=== PATIENT | female | born 1965 | race Caucasian/White ===

== ENCOUNTER → 2017-09-05 08:29 | Outpatient (CLI) | payer BC, SELFPAY ==
[2017-09-05 10:40] LABS: Glucose 107 mg/dL (74-106)
[2017-09-05 10:47] LABS: Hemoglobin A1c 5.9 % (4.2-6.3)
[2017-09-06 09:53] LABS: Vitamin D,25 Hydroxy 31.9 ng/mL (29.95-100.01)
== END ==
PROVIDERS: Family Provider Family Medicine; PCP Family Medicine; Visit Provider Family Medicine
DX: R73.03 Prediabetes (principal); E55.9 Vitamin D deficiency, unspecified
CPT/HCPCS: 36415; 82306; 82947; 83036

== ENCOUNTER 2017-10-02 15:41 | Outpatient (RCR) | payer BC, SELFPAY | END 2017-10-12 23:59 | LOC: NS 15:41 | PROVIDERS: Family Provider Family Medicine; PCP Family Medicine; Visit Provider Family Medicine | DX: E66.9 Obesity, unspecified (principal); Z68.41 Body mass index [BMI] 40.0-44.9, adult; Z71.3 Dietary counseling and surveillance | CPT/HCPCS: 97802 ==

== ENCOUNTER 2017-11-07 13:30 | Outpatient (RCR) | payer BC, SELFPAY ==
--- NOTE | 2017-10-23 14:25 | DT_ITS ---
This patient was seen during an EMR downtime October 16, 2017 - October 23, 2017. This patient may have a combination of paper and electronic documentation or all paper documentation. All documentation is viewable within the e-chart portion of [facility] for each patient visit.
== END 2017-11-11 23:59 ==
LOC: NS 13:30
PROVIDERS: Family Provider Family Medicine; PCP Family Medicine; Visit Provider Family Medicine
DX: E66.9 Obesity, unspecified (principal); Z68.41 Body mass index [BMI] 40.0-44.9, adult; Z71.3 Dietary counseling and surveillance
CPT/HCPCS: 97803

== ENCOUNTER 2017-12-01 08:00 | Outpatient (RCR) | payer BC, SELFPAY | END 2017-12-12 23:59 | LOC: NS 08:00 | PROVIDERS: Family Provider Family Medicine; PCP Family Medicine; Visit Provider Family Medicine | DX: E66.9 Obesity, unspecified (principal); Z68.41 Body mass index [BMI] 40.0-44.9, adult; Z71.3 Dietary counseling and surveillance | CPT/HCPCS: 97803 ==

== ENCOUNTER 2018-01-11 11:30 | Outpatient (RCR) | payer BC, SELFPAY | END 2018-01-12 23:59 | LOC: NS 11:30 | PROVIDERS: Family Provider Family Medicine; PCP Family Medicine; Visit Provider Family Medicine | DX: E66.9 Obesity, unspecified (principal); Z68.41 Body mass index [BMI] 40.0-44.9, adult; Z71.3 Dietary counseling and surveillance | CPT/HCPCS: 97803 ==

== ENCOUNTER 2018-03-08 11:30 | Outpatient (RCR) | payer BC, SELFPAY | END 2018-03-08 23:59 | LOC: NS 11:30 | PROVIDERS: Family Provider Family Medicine; PCP Family Medicine; Visit Provider Family Medicine | DX: E66.9 Obesity, unspecified (principal); Z68.41 Body mass index [BMI] 40.0-44.9, adult; Z71.3 Dietary counseling and surveillance | CPT/HCPCS: 97803 ==

== ENCOUNTER → 2018-05-02 08:03 | Outpatient (CLI) | payer BC, SELFPAY ==
[2018-05-02 10:37] LABS: Vitamin D,25 Hydroxy 33.9 ng/mL (29.95-100.01)
[2018-05-02 10:46] LABS: Anion Gap 10 (5-15); BUN 23 mg/dL (7-18); BUN/Creat Ratio 27.6 RATIO (10-20); Chloride 109 mmol/L (98-107); Cholesterol 221 mg/dL (200); Creatinine, Serum 0.83 mg/dL (0.55-1.02); EST Glomerular Filtration Rate 76 mL/min (>60); Est Glom Filt Rate - Afr Amer 92 mL/min (>60); Glucose 102 mg/dL (74-106); High Density Lipoprotein 48 mg/dL; Sodium Level 142 mmol/L (136-145); Thyroid Stim Hormone (TSH) 2.24 uIU/mL (0.358-3.74); Triglycerides 139 mg/dL; Very Low Density Lipoprotein 28 mg/dL (5-40)
--- OUTSIDE RECORDS SUMMARY | 2018-08-03 08:31 | XMS RPT_ITS ---
:1965 Author Organization [place] Support Name Relationship Address Phone JUANA RAMESH Unavailable [address] + [place] [address] [employer] Unavailable [address] + [place] [address] Juana Ramesh Unavailable Unavailable + JUANA RAMESH Unavailable [address] + [place] [address] [employer] Unavailable [address] + [place] [address] JUANA RAMESH Unavailable [address] + [place] [address] [employer] Unavailable [address] + [place] [address] JUANA RAMESH Unavailable [address] + [place] [address] [employer] Unavailable [address] + [place] [address] JUANA RAMESH Unavailable [address] + [place] [address] [employer] Unavailable [address] + [place] [address] JUANA RAMESH Unavailable [address] + [place] [address] [employer] Unavailable [address] + [place] [address] JUANA RAMESH Unavailable [address] [phone] [place] [address] [employer] Unavailable [address] + [place] [address]JUANA SIMMS Unavailable [address] [phone] [place] [address] [employer] Unavailable [address] + [place] [address] Care Team Providers Name Role Phone Marycarmen Chang Attending Unavailable PROVIDER, UNKNOWN Referring Unavailable Dickey, Brandon Primary Care Unavailable Dickey, Brandon Attending Unavailable Dickey, Brandon Primary Care Unavailable Dickey, Brandon Attending Unavailable Dickey, Brandon Primary Care Unavailable Dickey, Brandon Attending Unavailable Dickey, Brandon Referring Unavailable Dickey, Brandon Primary Care Unavailable Dickey, Brandon Attending Unavailable Dikcey, Brandon Referring Unavailable Dickey, Brandon Primary Care Unavailable Dickey, Brandon Attending Unavailable Dickey, Brandon Referring Unavailable Dickey, Brandon Primary Care Unavailable Dickey, Brandon Attending Unavailable Dickey, Brandon Referring Unavailable Diceky, Brandon Primary Care Unavailable Dickey, Brandon Attending Unavailable Dickey, Brandon Referring Unavailable Dickey, Brandon Primary Care Unavailable Dickey, Brandon Attending Unavailable Dickey, Brandon Referring Unavailable Dickey, Brandon Primary Care Unavailable PROBLEMS PROBLEMS DATE TYPE CONDITION / CODE ATTENDING STATUS SOURCE 04/13/2018 Admitting Encntr screen Bernardo Smartling Diagnosis mammogram for [facility] malignant Repository neoplasm of breast / Z12.31(ICD-10) 04/13/2018 Admitting Family history of Kerirorykathleen Smartling Diagnosis malignant [facility] neoplasm of Repository breast / Z80.3(ICD-10) 03/15/2018 Unknown E66.9 - Obesity, Brandon Dickey Active [place] unspecified / Community E66.9(ICD-10) Hospital Repository 09/06/2017 Unknown R73.03 - Brandon Dickey Active [place] Prediabetes / Community R73.03(ICD-10) Hospital Repository 09/06/2017 Unknown 790.29 - Other Brandon Dickey Active [place] abnormal glucose Community / 790.29(ICD-9) Hospital Repository 09/06/2017 Unknown E55.9 - Vitamin D Brandon Dickey Active [place] deficiency, Community unspecified / Hospital E55.9(ICD-10) Repository 09/06/2017 Unknown 268.9 - Brandon Dickey Active [place] Unspecified Community vitamin D Hospital deficiency / Repository 268.9(ICD-9) PROCEDURES PROCEDURES No Procedure Records FoundRESULTS RESULTS HEMOGLOBIN A1C Collected: 05/02/2018 Status: F Source: [place] 8:04 AM [facility] REPOSITORY Order Comment: Order Date: 10/30/17 Order Info: 4548-4 - A1C TYPE CODE TESTS RESULT OUT OF RANGE REFERENCE UNITS LAB L501.9985 4.2-6.3 % Normal HGB A1C 6.0 Performed By: #### L501.9985, L506.1000, L500.2500, L500.4100, L501.9520 #### [facility] [address] [place], [address] VITAMIN D,25 HYDROXY Collected: 05/02/2018 Status: F Source: [place] 8:04 AM [facility] REPOSITORY Order Comment: Order Date: 10/30/17 Order Info: 57552-3 - VITD25 TYPE CODE TESTS RESULT OUT OF RANGE REFERENCE UNITS LAB L506.1000 29.95-100.01 ng/mL Normal Vitamin D 33.9 25-OH Result Comment: Vitamin D 25(OH) Status Range Deficiency <20 ng/mL (50nmol/L) Insuffciency 20 - 30 ng/mL (50 - 75 nmol/L) Sufficiency 30 - 100 ng/mL (75 - 250 nmol/L) Toxicity >100 ng/mL (>250 nmol/L) Performed By: #### L501.9985, L506.1000, L500.2500, L500.4100, L501.9520 #### [facility] [address] [place], [address] BASIC METABOLIC Collected: 05/02/2018 Status: F Source: [place] PROFILE (BMP) 8:04 AM [facility] REPOSITORY Order Comment: Order Date: 10/30/17 Order Info: [id number] - BMP Order Info: [id number] - LIPID Order Info: 3016-3 - TSH TYPE CODE TESTS RESULT OUT OF RANGE REFERENCE UNITS LAB L501.0100 74-106 mg/dL Normal GLU 102 Result Comment: Fasting Glucose result from 100 to 125 mg/dL suggests IMPAIRED HOMEOSTASIS per A.D.A. criteria. Please note revised GLUCOSE reference range effective 2017. LAB L501.1000 7-18 mg/dL High BUN 23 LAB L501.1100 0.55-1.02 mg/dL Normal CREAT,SERUM 0.83 Result Comment: The validity of the calculated GFR AND GFRAA in patients over 70 years has not been determined. Clinical correlation is essential. LAB L501.1110 >60 mL/min Normal EST GFR 76 Result Comment: Non- GFR Calc LAB L501.1115 >60 mL/min Normal EST GFR - AA 92 Result Comment: GFR Calc LAB L501.1300 10-20 RATIO High BUN/CRE 27.6 LAB L501.2200 8.5-10.1 mg/dL CA Normal 9.0 LAB L501.5300 136-145 mmol/L NA Normal 142 LAB L501.5600 3.5-5.1 mmol/L K Normal 4.0 LAB L501.5900 98-107 mmol/L High CL 109 LAB L501.6100 21.0-32.0 mmol/L Normal CO2 23.0 LAB L501.6200 5-15 Normal GAP 10 Performed By: #### L501.9985, L506.1000, L500.2500, L500.4100, L501.9520 #### [facility] [address] [place], [place], [address] LIPID PROFILE Collected: 05/02/2018 Status: F Source: [place] 8:04 AM [facility] REPOSITORY Order Comment: Order Date: 10/30/17 Order Info: [id number] - BMP Order Info: [id number] - LIPID Order Info: 3016-3 - TSH TYPE CODE TESTS RESULT OUT OF RANGE REFERENCE UNITS LAB L501.4900 200 mg/dL High CHOL 221 Result Comment: <200 mg/dL Desirable 200-240 mg/dL Borderline >240 mg/dL High Risk LAB L501.5000 mg/dL Normal TRIG 139 Result Comment: The drugs N-Acetylcysteine and Metamizole may falsely depress this assay. Serum Triglycerides Reference Interval Normal <150 mg/dL Borderline high 150 - 199 mg/dL High 200 - 499 mg/dL Very High > or = 500 mg/dL LAB L501.6400 mg/dL Normal HDL 48 Result Comment: The drugs N-Acetylcysteine and Metamizole may falsely depress this assay. Reference Range HDL <40 mg/dL Low HDL Cholesterol HDL >or= 60 mg/dL High HDL Cholesterol LAB L501.6500 0-130 mg/dL High LDL 145 LAB L501.6600 5-40 mg/dL Normal VLDL 28 Performed By: #### L501.9985, L506.1000, L500.2500, L500.4100, L501.9520 #### [facility] [address] [place], [address] THYROID STIM HORMONE Collected: 05/02/2018 Status: F Source: [place] (TSH) 8:04 AM [facility] REPOSITORY Order Comment: Order Date: 10/30/17 Order Info: [id number] - BMP Order Info: [id number] - LIPID Order Info: 3016-3 - TSH TYPE CODE TESTS RESULT OUT OF RANGE REFERENCE UNITS LAB L501.9520 0.358-3.74 uIU/mL Normal TSH 2.24 Performed By: #### L501.9985, L506.1000, L500.2500, L500.4100, L501.9520 #### [facility] [address] [facility] [place], [address] MG BREAST TOMOSYNTHESIS Observed: 04/13/2018 Status: F Source: [employer] SCR BL 12:00 AM SYSTEM REPOSITORY Patient Name: JENNY RAMESH Mammography Exam Date/Time 04/13/2018 11:22:07 EST Exam MG Breast Tomosynthesis [facility] Ordering Physician Shawn CHANG MARYCARMEN Accession Number [id number] CPT4 Codes 12422 (MG Breast Tomosynthesis Scr Bl), 79773 (MG MAMMO 2D SCREENING) Reason For Exam screening Report PATIENT HISTORY: Family history of breast cancer at age 51 in mother, unknown cancer in sister, prostate cancer at age 65 in father, breast cancer at age 50 or over in maternal aunt. Benign stereotactic core biopsy of the left breast, 2007. Took hormonal contraceptives for 4 years. Patient has never smoked. Patient's BMI is 38.8. TIME SINCE LAST MAMMOGRAM: Last mammogram was performed 1 year ago. REASON FOR EXAM: screening, asymptomatic. PROCEDURE: MG BREAST TOMOSYNTHESIS BL SCR: APRIL 13, 2018 - 2D/3D Procedure 3D Bilateral CC and MLO view(s) were taken. 2D Bilateral CC and MLO view(s) were taken. Prior study comparison: April 03, 2017, bilateral MG breast tomosynthesis bl performed at [facility]. October 03, 2016, MG breast tomosynthesis left performed at [facility]. March 12, 2015, MG breast tomosynthesis left performed at [facility]. January 29, 2015, bilateral screening mammogram, performed at [facility]. TISSUE DENSITY: There are scattered fibroglandular densities. FINDINGS: No suspicious masses, architectural distortions or suspiciously clustered microcalcifications are identified. There is no evidence of skin thickening or nipple retraction. A postbiopsy tissue marker is present in the superior lateral quadrant of the left breast anteriorly as well as the inferior medial quadrant of the left breast at anterior to middle depth. There are no significant changes when compared with prior studies. Markings on images: BB's = Nipples; skin lesions Open [place] = Palpable Line = Scar 2D digital mammography and tomosynthesis imaging were performed and reviewed with CAD. ASSESSMENT: Category 2 Benign No mammographic evidence of malignancy. RECOMMENDATION: Routine screening mammogram of both breasts in 1 year. The patient does have an elevated lifetime risk of breast malignancy, see below. Consider SCREENING BREAST MRI. Report Dictated on Cancer Risk Assessment: This risk assessment is based on patient provided information collected in a risk survey taken at the time of this examination. Lifetime breast cancer risk: 19.2% - If greater than or equal to 20%, consider annual mammogram and annual screening Breast MRI or follow up in high risk clinic. Is the patient at elevated risk based on the HBOC criteria? Yes (Hereditary Breast and Ovarian Cancer) - If yes, consider genetic counseling and testing with high risk follow up. HNPCC mutation risk (Watson Syndrome): 1% - if greater than or equal to 5%, consider genetic counseling, testing and screening colonoscopy. Final Signed Date and Time: 04/13/2018 1:12 pm Signed by: MD MYERS JENNIFER R [facility] REPORT Observed: 11/02/2017 Status: F Source: [place] 11:54 AM [facility] REPOSITORY [facility] Medical Records Department [address] [place] [address] Downtime Report MR#: [id number] Acct: [id number] Name: JENNY RAMESH Rep #: [id number] : 1965 52 From: Thomas Dickey PCP: Brandon Dickey MD Status: REG RCR This patient was seen during an EMR downtime October 16, 2017 - October 23, 2017. This patient may have a combination of paper and electronic documentation or all paper documentation. All documentation is viewable within the e-chart portion of [facility] [employer] for each patient visit. GLUCOSE Collected: 09/05/2017 Status: F Source: [place] 8:30 AM [facility] REPOSITORY Order Comment: Order Date: 05/09/17 Order Info: 2345-7 - GLU TYPE CODE TESTS RESULT OUT OF RANGE REFERENCE UNITS LAB L501.0100 74-106 mg/dL High GLU 107 Result Comment: Fasting Glucose result from 100 to 125 mg/dL suggests IMPAIRED HOMEOSTASIS per A.D.A. criteria. Please note revised GLUCOSE reference range effective 2017. Performed By: #### L501.0100, L501.9985, L506.1000 #### [facility] [address] [place], [address] HEMOGLOBIN A1C Collected: 09/05/2017 Status: F Source: [place] 8:30 AM [facility] REPOSITORY Order Comment: Order Date: 05/09/17 Order Info: 4548-4 - A1C TYPE CODE TESTS RESULT OUT OF RANGE REFERENCE UNITS LAB L501.9985 4.2-6.3 % Normal HGB A1C 5.9 Performed By: #### L501.0100, L501.9985, L506.1000 #### [facility] [address] [place], [address] VITAMIN D,25 HYDROXY Collected: 09/05/2017 Status: F Source: [place] 8:30 AM [facility] REPOSITORY Order Comment: Order Date: 05/09/17 Order Info: 97450-9 - VITD25 TYPE CODE TESTS RESULT OUT OF RANGE REFERENCE UNITS LAB L506.1000 29.95-100.01 ng/mL Normal Vitamin D 31.9 25-OH Result Comment: Vitamin D 25(OH) Status Range Deficiency <20 ng/mL (50nmol/L) Insuffciency 20 - 30 ng/mL (50 - 75 nmol/L) Sufficiency 30 - 100 ng/mL (75 - 250 nmol/L) Toxicity >100 ng/mL (>250 nmol/L) Performed By: #### L501.0100, L501.9985, L506.1000 #### [facility] [address] [place], [address] ALLERGIES ALLERGIES No Allergies Records FoundENCOUNTERS ENCOUNTERS ADMIT/DISCHARGE ACCOUNT NUMBER ADMITTING ENCOUNTER LOCATION SOURCE CLASS 05/02/2018 [id number] [facility] ding:MFPLAB Repository 04/13/2018 [id number] [facility] Repository 03/25/2018 [id number] [facility] ding:NS Repository 03/08/2018/03/14/[id number] ding:NS Repository 01/11/2018/01/13/[id number] ding:NS Repository 12/01/2017/12/13/[id number] ding:NS Repository 11/07/2017/11/12/[id number] ding:NS Repository 10/02/2017/10/13/[id number] ding:NS Repository 09/05/2017 [id number] [facility] ding:MFPLAB Repository PAYERS PAYERS ENCOUNTER GUARANTOR PAYER SUBSCRIBER SOURCE 05/02/2018 Juana BACASHAREE Sigala [place] [id number] Insurance:ANTHEMPolic BECKERDOB: [facility] y [place]: [id number] [id number] Repository [address]Vqf: [phone]) Date:6830-64-34HN [phone] () [place], [place] [address]YR: 05/02/2018 Secondary NOT GIVENUNK [place] Insurance:SELF PAY [facility] Number: Effective Repository Date:2018-05-02 04/13/2018 Jenny L Primary Jenny L [facility] BeckerDOB: Insurance:[place] BeckerDOB: System [id number] W Cross Blue [id number] Repository [facility] Number: [facility], Effective Date: [place] [address]Plv: () 03/25/2018 Juana Primary JENNY L [place] [id number] Insurance:ANTHEMPolic BECKERDOB: [facility] y Number: [id number], [place] [id number] Repository [address]Gqr: ([phone]) Date:9667-82-89KP [phone] () [address] [place] [address] [place] [address]HY: 03/25/2018 Secondary NOT GIVENUNK [place] Insurance:SELF PAY [facility] Number: Effective Repository Date:2018-03-15 03/08/2018 Juana OSWALD L [place] [id number] Insurance:ANTHEMPolic BECKERDOB: [facility] y Number: [id number], [place] [id number] Repository [address]Mgd: ([phone]) Date:7603-51-29UK [phone] () [address] [place] [address] [place] [address]HY: 03/08/2018 Secondary NOT GIVENUNK [place] Insurance:SELF PAY [facility] Number: Effective Repository Date:2018-01-13 01/11/2018 Juana Primary JENNY L [place] [id number] Insurance:ANTHEMPolic BECKERDOB: [facility] y Number: [id number], [place] [id number] Repository 346[address]Vbk: ([phone]) Date:1169-38-60KN [phone] () [address]AK[place], [place] [address]JE: 01/11/2018 Secondary NOT GIVENUNK [place] Insurance:SELF PAY [facility] Number: Effective Repository Date:2017-12-13 12/01/2017 Juana Arredondo [id number] Insurance:ANTHEMPolic BECKERDOB: [facility] y Number: [id number], [place] [id number] Repository 278[address]Hcc: ([phone]) Date:2589-07-16WA [phone] (HP) [id number], [place] [address]KR: 12/01/2017 Secondary NOT GIVENUNK [place] Insurance:SELF PAY [facility] Number: Effective Repository Date:2017-11-12 11/07/2017 Juana Sigala [place] [id number] Insurance:ANTHEMPolic BECKERDOB: [facility] y Number: [id number], [place] [id number] Repository 229[address]Mvh: ([phone]) Date:9375-24-49IV [phone] () 432[address]XLNLLZS, [place] [address]VL: 11/07/2017 Secondary NOT GIVENUNK [place] Insurance:SELF PAY [facility] Number: Effective Repository Date:2017-10-13 10/02/2017 Juana Arredondo [id number] Insurance:ANTHEMPolic BECKERDOB: [facility] y Number: [id number], [place] [id number] Repository [address]Rfx: Date:7233-39-52PI [phone] 866224BMCQQSO, [place] 9 () [address]WA: 10/02/2017 Secondary NOT GIVENUNK [place] Insurance:SELF PAY [facility] Number: Effective Repository Date:2017-09-14 09/05/2017 Juana Arredondo [id number] Insurance:ANTHEMPolic BECKERDOB: [facility] y Number: [id number], [place] [id number] Repository [address]Jln: Date:0663-72-59AF [phone] [id number], [place] 9 () [address]EC: 09/05/2017 Secondary NOT GIVENUNK [place] Insurance:SELF PAY [facility] Number: Effective Repository Date:2017-09-05
== END ==
PROVIDERS: Family Provider Family Medicine; PCP Family Medicine; Visit Provider Family Medicine
DX: E55.9 Vitamin D deficiency, unspecified (principal); I10 Essential (primary) hypertension; E66.9 Obesity, unspecified; E78.00 Pure hypercholesterolemia, unspecified; R73.03 Prediabetes
CPT/HCPCS: 36415; 80048; 80061; 82306; 83036; 84443

== ENCOUNTER → 2019-04-23 08:01 | Outpatient (CLI) | payer BC, SELFPAY ==
[2019-04-23 10:19] LABS: Anion Gap 7 (5-15); BUN 19 mg/dL (7-18); BUN/Creat Ratio 23.1 RATIO (10-20); Calcium,Total 8.9 mg/dL (8.5-10.1); Chloride 110 mmol/L (98-107); Cholesterol 198 mg/dL (200); Creatinine, Serum 0.82 mg/dL (0.55-1.02); EST Glomerular Filtration Rate 77 mL/min (>60); Est Glom Filt Rate - Afr Amer 93 mL/min (>60); Glucose 122 mg/dL (74-106); High Density Lipoprotein 40 mg/dL; Potassium 3.8 mmol/L (3.5-5.1); Sodium Level 142 mmol/L (136-145); Triglycerides 312 mg/dL; Very Low Density Lipoprotein 62 mg/dL (5-40)
[2019-04-23 10:29] LABS: Hemoglobin A1c 6.8 % (4.2-6.3)
== END ==
PROVIDERS: Family Provider Family Medicine; PCP Family Medicine; Visit Provider Family Medicine
DX: R73.03 Prediabetes (principal); I10 Essential (primary) hypertension; E78.00 Pure hypercholesterolemia, unspecified
CPT/HCPCS: 36415; 80048; 80061; 83036

== ENCOUNTER → 2019-06-25 08:09 | Outpatient (CLI) | payer BC, SELFPAY ==
[2019-06-25 10:23] LABS: Anion Gap 8 (5-15); BUN 22 mg/dL (7-18); Calcium,Total 9.1 mg/dL (8.5-10.1); Chloride 109 mmol/L (98-107); Creatinine, Serum 0.92 mg/dL (0.55-1.02); EST Glomerular Filtration Rate 67 mL/min (>60); Est Glom Filt Rate - Afr Amer 82 mL/min (>60); Glucose 126 mg/dL (74-106); Sodium Level 144 mmol/L (136-145)
== END ==
PROVIDERS: PCP Family Medicine; Visit Provider Family Medicine
DX: E11.9 Type 2 diabetes mellitus without complications (principal)
CPT/HCPCS: 36415; 80048

== ENCOUNTER → 2020-04-23 08:11 | Outpatient (CLI) | payer BC, SELFPAY ==
[2020-04-23 10:54] LABS: ALB/GLOB Ratio 0.9 RATIO (0.9-2.4); AST(SGOT) 13 U/L (15-37); Alanine Aminotransfer ALT/SGPT 29 U/L (13-56); Albumin, Serum 3.6 g/dL (3.2-5.0); Alkaline Phosphatase 128 U/L (45-117); Anion Gap 8 (5-15); BUN 26 mg/dL (7-18); BUN/Creat Ratio 27.2 RATIO (10-20); Calcium,Total 9.1 mg/dL (8.5-10.1); Chloride 109 mmol/L (98-107); Creatinine, Serum 0.96 mg/dL (0.55-1.02); EST Glomerular Filtration Rate 64 mL/min (>60); Est Glom Filt Rate - Afr Amer 78 mL/min (>60); Globulin 3.9 g/dL (2.2-4.2); Glucose 125 mg/dL (74-106); Protein, Total 7.5 g/dL (6.4-8.2); Sodium Level 141 mmol/L (136-145); Thyroid Stim Hormone (TSH) 2.63 uIU/mL (0.358-3.74)
== END ==
PROVIDERS: PCP Family Medicine; Referring Provider Family Medicine; Visit Provider Family Medicine
DX: E11.9 Type 2 diabetes mellitus without complications (principal)
CPT/HCPCS: 36415; 80053; 84443

== ENCOUNTER 2020-07-30 14:47 | Outpatient (RCR) | payer BC, SELFPAY ==
[2020-07-30] MEDS: COVID-19 VACC, MRNA(PFIZER)/PF 30 MCG/0.3 ML SYRINGE IM (08:28)
[2020-08-20] MEDS: COVID-19 VACC, MRNA(PFIZER)/PF 30 MCG/0.3 ML SYRINGE IM (08:19)
== END 2020-07-30 23:59 ==
LOC: IMMUN 14:47
PROVIDERS: PCP Family Medicine; Visit Provider Family Medicine
DX: Z23 Encounter for immunization (principal)
CPT/HCPCS: 0001A; 0002A; 91300

== ENCOUNTER → 2020-10-15 14:47 | Outpatient (CLI) | payer BC, SELFPAY ==
--- NOTE | 2020-10-15 15:10 | BD_ITS ---
STUDY: DUAL ENERGY X-RAY ABSORPTIOMETRY / DXA REASON FOR EXAM: Female, 55 years old. Z13.820. The patient is postmenopausal. TECHNIQUE: Bone Mineral Density (BMD) measurements of lumbar spine and bilateral hips were obtained. COMPARISON: Comparison is made with prior study dated 03/13/2007. FINDINGS: Lumbar Spine (L1-L4): g/cm2 (1.103) / T-score (-0.6) / Z-score (0.3) Findings are suggestive of normal bone density with a low fracture risk. Left Femur Total: g/cm2 (0.869) / T-score (-1.1) / Z-score (-0.4) Left Femoral Neck: g/cm2 (0.851) / T-score (-1.3) / Z-score (-0.3) Right Femur Total: g/cm2 (0.956) / T-score (-0.4) / Z-score (0.3) Right Femoral Neck: g/cm2 (0.806) / T-score (-1.7) / Z-score (-0.6) The T-Scores on the most recent prior examination were: Lumbar Spine (L1-L4): There has been improvement of bone density since the previous examination. Left Femur Total: which represents a worsening of 26.2%. BD/Dexa Bone Density Study IMPRESSION: The patient is considered osteopenic as outlined below according to World Andre Organization (WHO) criteria with a moderate fracture risk. There has been worsening of bone density since the previous examination. Reference Information: The T-score is the number of standard deviations above or below the standard which is normal for young adults at their peak bone mineral density. The World Health Organization (WHO) interprets the T-scores as follows: Above -1 Normal bone density Between -1 and -2.5 Osteopenia Equal to / or below -2.5 Osteoporosis As a practical clinical guideline, osteopenia may be graded as follows: Mild -1 through -1.5 Moderate -1.6 through -2.0 Severe -2.1 through -2.4 The Z-score is the number of standard deviations above or below age-matched controls. A Z-score of less than -1.5 would be considered abnormal. References: 1. NIH Osteoporosis and Related Bone Diseases www osteo.org 2. International Society for Clinical Densitometry www iscd.org 3. National Osteoporosis Foundation www nof.org Electronically Signed: True Hull MD at 13:21 EDT , Service support ,
== END ==
PROVIDERS: PCP Family Medicine; Referring Provider Obstetrics & Gynecology; Visit Provider Obstetrics & Gynecology
DX: Z13.820 Encounter for screening for osteoporosis (principal)
CPT/HCPCS: 77080

== ENCOUNTER → 2020-10-20 08:24 | Outpatient (CLI) | payer BC, SELFPAY | PROVIDERS: PCP Family Medicine; Visit Provider Family Medicine | DX: Z00.00 Encounter for general adult medical examination without abnormal findings (principal) ==

== ENCOUNTER → 2020-10-29 08:16 | Outpatient (CLI) | payer BC, SELFPAY ==
[2020-10-29 11:16] LABS: Anion Gap 9 (5-15); BUN 16 mg/dL (7-18); BUN/Creat Ratio 20.3 RATIO (10-20); Calcium,Total 9.2 mg/dL (8.5-10.1); Chloride 106 mmol/L (98-107); Cholesterol 202 mg/dL (200); Creatinine, Serum 0.79 mg/dL (0.55-1.02); EST Glomerular Filtration Rate 80 mL/min (>60); Est Glom Filt Rate - Afr Amer 97 mL/min (>60); Glucose 117 mg/dL (74-106); High Density Lipoprotein 43 mg/dL; Sodium Level 142 mmol/L (136-145); Triglycerides 271 mg/dL; Very Low Density Lipoprotein 54 mg/dL (5-40)
== END ==
PROVIDERS: PCP Family Medicine; Referring Provider Family Medicine; Visit Provider Family Medicine
DX: E11.9 Type 2 diabetes mellitus without complications (principal)
CPT/HCPCS: 36415; 80048; 80061

== ENCOUNTER → 2021-05-10 09:28 | Outpatient (CLI) | payer BC, SELFPAY ==
[2021-05-10 12:27] LABS: Vitamin B12 566 pg/mL (211-911)
[2021-05-10 12:53] LABS: ALB/GLOB Ratio 0.8 RATIO (0.9-2.4); AST(SGOT) 16 U/L (15-37); Alanine Aminotransfer ALT/SGPT 29 U/L (13-56); Albumin, Serum 3.5 g/dL (3.2-5.0); Alkaline Phosphatase 123 U/L (45-117); Anion Gap 9 (5-15); BUN 18 mg/dL (7-18); BUN/Creat Ratio 19.6 RATIO (10-20); Calcium,Total 9.3 mg/dL (8.5-10.1); Chloride 110 mmol/L (98-107); Creatinine, Serum 0.92 mg/dL (0.55-1.02); EST Glomerular Filtration Rate 67 mL/min (>60); Est Glom Filt Rate - Afr Amer 81 mL/min (>60); Globulin 4.2 g/dL (2.2-4.2); Glucose 109 mg/dL (74-106); Potassium 3.9 mmol/L (3.5-5.1); Protein, Total 7.7 g/dL (6.4-8.2); Sodium Level 143 mmol/L (136-145); Thyroid Stim Hormone (TSH) 2.05 uIU/mL (0.358-3.74)
== END ==
PROVIDERS: PCP Family Medicine; Visit Provider Family Medicine
DX: E11.9 Type 2 diabetes mellitus without complications (principal)
CPT/HCPCS: 36415; 80053; 82607; 84443

== ENCOUNTER → 2021-11-08 | Outpatient (CLI) | payer BC, SELFPAY ==
[2021-11-08 10:33] LABS: Anion Gap 8 (5-15); BUN 20 mg/dL (7-18); BUN/Creat Ratio 27.4 RATIO (10-20); Chloride 111 mmol/L (98-107); Cholesterol 195 mg/dL (200); Creatinine, Serum 0.73 mg/dL (0.55-1.02); EST Glomerular Filtration Rate 87 mL/min (>60); Est Glom Filt Rate - Afr Amer 106 mL/min (>60); Glucose 118 mg/dL (74-106); High Density Lipoprotein 43 mg/dL; Potassium 3.8 mmol/L (3.5-5.1); Sodium Level 143 mmol/L (136-145); Triglycerides 253 mg/dL; Very Low Density Lipoprotein 51 mg/dL (5-40)
== END | disposition home or self-care (01) ==
LOC: MFPLAB 08:32
PROVIDERS: PCP Family Medicine; Visit Provider Family Medicine
DX: E11.9 Type 2 diabetes mellitus without complications (principal)
CPT/HCPCS: 36415; 80048; 80061

== ENCOUNTER → 2022-11-09 | Outpatient (CLI) | payer BC, SELFPAY ==
[2022-11-09 10:53] LABS: Color, Urine Yellow (Yellow); Glucose, Dipstick Normal (Normal); Ketone-Dipstick Negative (Negative); Leukocyte Esterase-Dipstick Negative /ul (Negative); Nitrite-Dipstick Negative (Negative); Occult Blood-Urine Negative /ul (Negative); Protein-Dipstick 15 mg/dl (Negative); Specific Gravity, Urine 1.015 (1.002-1.030); Urine Bilirubin Dipstick Negative (Negative); Urine Clarity Clear (Clear); Urine Urobilinogen Normal (Normal)
[2022-11-09 11:24] LABS: ALB/GLOB Ratio 0.9 RATIO (0.9-2.4); AST(SGOT) 16 U/L (15-37); Alanine Aminotransfer ALT/SGPT 26 U/L (13-56); Albumin, Serum 3.6 g/dL (3.2-5.0); Alkaline Phosphatase 137 U/L (45-117); Anion Gap 4 (5-15); BUN 17 mg/dL (7-18); BUN/Creat Ratio 19.7 RATIO (10-20); Calcium,Total 9.5 mg/dL (8.5-10.1); Chloride 108 mmol/L (98-107); Cholesterol 212 mg/dL (200); Creatinine, Serum 0.86 mg/dL (0.55-1.02); EST Glomerular Filtration Rate 72 mL/min (>60); Est Glom Filt Rate - Afr Amer 87 mL/min (>60); Globulin 3.9 g/dL (2.2-4.2); Glucose 136 mg/dL (74-106); High Density Lipoprotein 44 mg/dL; Potassium 3.8 mmol/L (3.5-5.1); Protein, Total 7.5 g/dL (6.4-8.2); Sodium Level 139 mmol/L (136-145); Triglycerides 151 mg/dL; Very Low Density Lipoprotein 30 mg/dL (5-40)
[2022-11-09 11:29] LABS: Vitamin D,25 Hydroxy 83.2 ng/mL
[2022-11-09 20:26] LABS: Thyroid Stim Hormone (TSH) 3.34 uIU/mL (0.358-3.74)
== END | disposition home or self-care (01) ==
LOC: MTLAB 08:12
PROVIDERS: PCP Family Medicine; Referring Provider Family Medicine; Visit Provider Family Medicine
DX: Z00.00 Encounter for general adult medical examination without abnormal findings (principal); E11.9 Type 2 diabetes mellitus without complications; E55.9 Vitamin D deficiency, unspecified
CPT/HCPCS: 36415; 80053; 80061; 81002; 82043; 82306; 84443

== ENCOUNTER → 2023-05-29 | Outpatient (CLI) | payer BC, SELFPAY ==
--- OUTSIDE RECORDS SUMMARY | 2023-05-29 09:56 | XMS RPT_ITS | CCD ---
Author Name Unknown Address [address] [place] [address] Organization [facility] Care Team Providers Care Green Building Engineer Name Role Phone Brandon Dickey Primary Care Provider TAYLOR KENDALL Attending Unavailable Allergies Allergy Classification Reported Allergen(s) Allergy Type Date of Onset Reaction(s) Facility (5 sources) hydroCHLOROthiazide Drug Allergy [address] [place] [address] Medications Current Medications Medication Drug Class(es) Dates Sig (Normalized) Sig (Original) clobetasol propionate 0.5 mg/ml topical lotion (5 sources) Corticosteroid Clobetasol Propionate (CLOBEX) 0.05 % LOTN Apply topically 0 Active FLUZONE QUADRIVALENT 0.5 ML injection (2 sources) Start: 02-22-2018 FLUZONE QUADRIVALENT 0.5 ML injection To be injected by Pharmacist 0 02/22/2018 Active FLUZONE QUADRIVALENT 0.5 ML injection (1 source) Start: 02-22-2018 FLUZONE QUADRIVALENT 0.5 ML injection To be injected by Pharmacist 0 02/22/2018 Active FLUZONE QUADRIVALENT 0.5 ML injection (1 source) Start: 02-22-2018 FLUZONE QUADRIVALENT 0.5 ML injection To be injected by Pharmacist 0 02/22/2018 Active losartan potassium 50 mg oral tablet (5 sources) Angiotensin 2 Receptor Cesar Start: 03-30-2018 losartan (COZAAR) 50 MG tablet 100 mg 11 03/30/2018 Active 24 hr metFORMIN hydrochloride 500 mg extended release oral tablet (2 sources) Biguanide Start: 04-08-2020 metFORMIN (GLUCOPHAGE-XR) 500 MG extended release tablet ondansetron 4 mg oral tablet (3 sources) Serotonin-3 Receptor Antagonist Start: 11-26-2019 take 1 tablet by mouth every twelve hours as needed for nausea ondansetron (ZOFRAN) 4 MG tablet Take 1 tablet by mouth every 12 hours as needed for Nausea or Vomiting 4 tablet 0 11/26/2019 Active Completed/Discontinued Medications Medication Drug Class(es) Dates Sig (Normalized) Sig (Original) gadobutrol (GADAVIST) injection 9.5 mL (1 source) Start: 11-29-2019 End: 11-29-2019 gadobutrol (GADAVIST) injection 9.5 mL Problems Active Problems Problem Classification Problem Date Documented Da te Episodic/Chronic Nonmalignant breast conditions (1 source) Fibrocystic changes of bilateral breasts; Translations: [Diffuse cystic mastopathy of right breast] Onset: 04-13-2018 04-13-2018 Chronic Nonmalignant breast conditions (4 sources) Fibrocystic changes of bilateral breasts; Translations: [Fibrocystic breast changes, bilateral] Onset: 04-13-2018 04-13-2018 Other screening for suspected conditions (not mental disorders or infectious disease) (7 sources) Abnormal findings on diagnostic imaging of breast; Translations: [Other abnormal and inconclusive findings on diagnostic imaging of breast] Onset: 02-20-2015 02-20-2015 Episodic Other screening for suspected conditions (not mental disorders or infectious disease) (1 source) Inconclusive mammography finding; Translations: [Dense breasts] Residual codes; unclassified (2 sources) Other specified personal risk factors, not elsewhere classified; Translations: [Other specified personal risk factors, not elsewhere classified] Onset: 05-12-2022 Episodic Residual codes; unclassified (2 sources) Family history of malignant neoplasm of breast; Translations: [Family history of malignant neoplasm of breast] Onset: 02-24-2022 Episodic Residual codes; unclassified (5 sources) At high risk for breast cancer; Translations: [At high risk for breast cancer] Onset: 04-13-2018 04-13-2018 Unclassified (2 sources) Patient encounter status; Translations: [Screening mammogram for high-risk patient] Past or Other Problems Problem Classification Problem Date Documented Da te Episodic/Chronic Nonmalignant breast conditions (5 sources) Breast lump; Translations: [Unspecified lump in unspecified breast] Onset: 02-20-2015 02-20-2015 Episodic Residual codes; unclassified (6 sources) Family history of breast cancer; Translations: [Family history of malignant neoplasm of breast] Onset: 02-20-2015 02-20-2015 Episodic Residual codes; unclassified (1 source) At high risk for breast cancer; Translations: [Other specified personal risk factors, not elsewhere classified] Onset: 04-13-2018 04-13-2018 Episodic Results Test Name Value Interpretation Reference Range Facil ity Encounters Encounter Date Encounter Type Care Provider Facility Start: 05-12-2022 End: 05-12-2022 ambulatory [facility] Start: 04-25-2022 End: 04-26-2022 ambulatory [facility] Start: 04-23-2021 End: 04-23-2021 Subsequent hospital visit by physician Marycarmen Kenny MD Work Phone: [facility] Procedures Date Procedure Procedure Detail Performing Clinician Start: 04-23-2021 Screening digital br east tomosynthesis bi Marycarmen Kenny MD Work Phone: Start: 11-29-2019 Mri breast without&w ith contrast w/cad bilateral Marycarmen Kenny Work Phone: Start: 04-19-2019 Screening digital br east tomosynthesis bi Marycarmen Kenny Work Phone: Plan of Treatment Date Care Activity Detail Author Start: 05-19-2028 DTaP/Tdap/Td vaccine (2 - Td or Tdap) DTaP/Tdap/Td vaccine (2 - Td or Tdap) [facility] Start: 04-23-2022 Screening for malign ant neoplasm of breast Breast cancer screen [facility] Start: 05-06-2021 End: 05-06-2021 Patient encounter procedure 05/06/2021 Office Visit [facility] Taylor Kendall APRN - AGENCY DIRECTOR [address] [place], [place] [id number] [facility] Start: 04-15-2021 End: 04-15-2021 Office Visit 04/15/2021 Office Visit Breast Clinic / Breast Center Taylor Kendall APRN - AGENCY DIRECTOR [address] [place], [place] [id number] [facility] Start: 02-19-2021 COVID-19 Vaccine (3 - Booster for Pfizer series) COVID-19 Vaccine (3 - Booster for Pfizer series) [facility] Start: 04-19-2020 Screening for malign ant neoplasm of breast Breast cancer screen [place], [place] Start: 04-17-2020 End: 04-17-2020 Office Visit 04/17/2020 Office Visit Breast Clinic / Breast Center Taylor Kendall, GRETCHEN - AGENCY DIRECTOR [address] [place] [address] [phone] [facility] Start: 01-14-2020 Influenza vaccination Flu vaccine (# 1) [place], [place] Start: 11-29-2019 End: 11-29-2019 Appointment 11/29/2019 Appointment MRI [facility] Start: 04-13-2019 Breast cancer screen Breast cancer s creen [place], [place] Start: 01-13-2019 Influenza vaccination Flu vaccine (# 1) [place] Start: 02-13-2014 Colon cancer screen colonoscopy Colon cancer screen colonoscopy [place], [place] Start: 02-13-2014 Screening for malign ant neoplasm of colon Colon cancer screen colonoscopy [place] Start: 02-13-2014 Shingles Vaccine (1 of 2) Shingles Vaccine (1 of 2) [facility] Start: 02-13-2009 Screening for malign ant neoplasm of colon Colon cancer screen colonoscopy [facility] Start: 2004 Diabetes screen Diabetes screen [place], [place] Start: 2004 Lipid panel Lipid screen [facility] Start: 2004 Lipid screen Lipid screen [place], [place] Start: 02-13-1985 Cervical cancer screen Cervical canc er screen [place], [place] Start: 02-13-1985 Screening for malign ant neoplasm of cervix Cervical cancer screen [place], [place] Start: 02-13-1983 DTaP/Tdap/Td vaccine (1 - Tdap) DTaP/Tdap/Td vaccine (1 - Tdap) [place] Start: 02-13-1979 HIV screen HIV screen [place], [place] Start: 02-13-1979 HIV screening HIV screen [facility] Start: 02-13-1975 DTaP/Tdap/Td vaccine (1 - Tdap) DTaP/Tdap/Td vaccine (1 - Tdap) [place], [place] Start: 1964 Creatinine measurement Creatinine mo nitoring [facility] Start: 1964 Creatinine monitoring Creatinine mon itoring [place], [place] Start: 1964 Hepatitis C screen Hepatitis C scree n [place], [place] Start: 1964 Hepatitis C screening Hepatitis C sc reen [facility] Start: 1964 Potassium monitoring Potassium monit oring [facility] End: 11-26-2019 MRI Breast Bilateral W WO Contrast MRI Breast Bilateral W WO Contrast Imaging Routine Screening mammogram for high-risk patient At High Risk For Breast Cancer Family history of breast cancer Dense breasts 1 Occurrences starting 11/26/2019 until 11/26/2019 [place], [place] Immunizations Immunization Date Immunization Notes Care Provider Anneliese thomas 02-22-2018 FLUZONE QUADRIVALENT 0.5 ML injection Marycarmen Kenny [place], [place] Payers Date Payer Category Payer Unknown BC[place] PO xxxxxxxxxxxx 2015-Present [address] [place] [address] xxxxxxxxxxxx [id number] 2015 Unknown BCBS [place] PO [id number] 2015-Present [address] [place] [address] [id number] 2015 Unknown [id number] Social History Date Type Detail Facility Start: 04-19-2019 End: 04-17-2020 Tobacco smoking status NHIS Never smoker [place], [place] Start: 04-19-2019 End: 04-17-2020 Alcohol intake Current non-drinker of alcohol (finding) [place], [place] Start: 1965 Sex Assigned At Not on file M [employer] JORGE ALBERTO BOWMAN Start: 04-19-2019 End: 04-17-2020 Tobacco use and exposure Never used [employer], JORGE ALBERTO Exposure to SARS-CoV -2 (event) Not sure Margie [employer] JORGE ALBERTO BOWMAN Medical Equipment Procedure Code Equipment Code Equipment Origin al Text Equipment Identifier Dates use 1 TEST STRIP to TEST BLOOD SUGAR once daily [id number] Start: 02-15-2020 Advance Directives No Advanced Directives Records FoundDocuments on File Type Date Recorded Patient Distribution Sales Manager Expl anation Advance Directives and Living Will Power of Harmonic Analyst Documents on File Type Date Recorded Patient Distribution Sales Manager Expl anation Advance Directives and Living Will Power of Harmonic Analyst Documents on File Type Date Recorded Patient Distribution Sales Manager Expl anation ACP-Advance Directive ACP-Power of Harmonic Analyst Documents on File Type Date Recorded Patient Distribution Sales Manager Expl anation ACP-Advance Directive ACP-Power of Harmonic Analyst Reason for Referral Status Reason Specialty Diagnoses / Procedures Referre d By Contact Referred To Contact Open Radiology Diagnoses Screening mammogram for high-risk patient At high risk for breast cancer Family history of breast cancer Dense breasts Procedures MRI Breast Bilateral W WO Contrast Marycarmen Kenny MD [address] [place] [address] Status Reason Specialty Diagnoses / Procedures Referred By Contact Referred To Contact Authorized Radiology Diagnoses Encounter for screening mammogram for breast cancer Procedures ONOFRE MIGUEL DIGITAL SCREEN BILATERAL Tayolr Kendall, GRETCHEN - AGENCY DIRECTOR [address] [place] [address] Assessments Diagnosis Screening mammogram for high-risk patient At high risk for breast cancer Family history of breast cancer Family history of malignant neoplasm of breast Dense breasts Inconclusive mammogram Diagnosis Encounter for screening mammogram for breast cancer Summary Purpose Family History No Family History Records FoundNo Family History Records Found Additional Source Comments Care Teams (unrecognized sec tion and content) INFORMATION SOURCE (unrecogn ized section and content) DATE CREATED AUTHOR AUTHOR'S ORGANIZ ATION 05/12/2022 [employer] [facility] FOR RECORDS PERTAINING TO PATIENTS WHO ARE OR HAVE BEEN ENROLLED IN A CHEMICAL DEPENDENCY/SUBSTANCEABUSE PROGRAM, SOME INFORMATION MAY BE OMITTED. This clinical summary was aggregated from multiple sources. Caution should be exercised in using it in the provision of clinical care. This summary normalizes information from multiple sources, and as a consequence, information in this document may materially change the coding, format and clinical context of patient data. In addition, data may be omitted in some cases. CLINICAL DECISIONS SHOULD BE BASED ON THE PRIMARY CLINICAL RECORDS. [employer] [facility]. provides no warranty or guarantee of the accuracy or completeness of information in this document.
[2023-05-29 14:04] LABS: ALB/GLOB Ratio 0.9 RATIO (0.9-2.4); AST(SGOT) 11 U/L (15-37); Alanine Aminotransfer ALT/SGPT 23 U/L (13-56); Albumin, Serum 3.6 g/dL (3.2-5.0); Alkaline Phosphatase 142 U/L (45-117); Anion Gap 7 (5-15); BUN 19 mg/dL (7-18); BUN/Creat Ratio 23.1 RATIO (10-20); Calcium,Total 9.4 mg/dL (8.5-10.1); Chloride 109 mmol/L (98-107); Cholesterol 194 mg/dL (200); Creatinine, Serum 0.82 mg/dL (0.55-1.02); EST Glomerular Filtration Rate 76 mL/min (>60); Est Glom Filt Rate - Afr Amer 92 mL/min (>60); Globulin 3.8 g/dL (2.2-4.2); Glucose 108 mg/dL (74-106); High Density Lipoprotein 55 mg/dL; Potassium 4.1 mmol/L (3.5-5.1); Protein, Total 7.4 g/dL (6.4-8.2); Sodium Level 143 mmol/L (136-145); Triglycerides 160 mg/dL; Very Low Density Lipoprotein 32 mg/dL (5-40)
== END | disposition home or self-care (01) ==
LOC: MFPLAB 09:37
PROVIDERS: PCP Family Medicine; Visit Provider Family Medicine
DX: E11.9 Type 2 diabetes mellitus without complications (principal)
CPT/HCPCS: 36415; 80053; 80061; 84443

== ENCOUNTER → 2024-03-27 | Outpatient (CLI) | payer BC, SELFPAY ==
[2024-03-27 18:16] LABS: Absolute Lymphocyte Count 1.34 X10^3/uL (0.83-4.51); Absolute Neutrophil Count 7.6 X10^3/uL (2.0-7.7); Basophil# 0.04 X10^3/uL; Basophil% 0.4 % (0-1); Eosinophil# 0.11 X10^3/uL; Eosinophils% 1.1 % (0-5); Hematocrit 39.4 % (37-47); Hemoglobin 12.9 g/dL (12.0-15.0); Lymphocyte # 1.34 X10^3/ul (0.83-4.51); Lymphocyte % 13.3 % (19-41); Mean Corp Hgb Conc 32.7 g/dL (32-36); Mean Corpuscular Hgb 28.5 pg (27.0-32.0); Mean Platelet Vol. 10.8 fl (6.2-12.0); Monocyte# 0.95 X10^3/uL; Monocyte% 9.4 % (0-10); NRBC Flagged by Analyzer 0 % (0-5); Neutrophil # 7.59 X10^3/uL (2.7-7.7); Neutrophil % 75.1 % (47-70); Platelet Count 368 K/mm3 (150-450); RBC Distribution Width CV 13.2 % (11.6-14.6); RBC Distribution Width SD 42.3 fl (35.1-43.9); Red Blood Count 4.53 M/mm3 (4.2-5.4); White Blood Count 10.1 K/mm3 (4.4-11.0)
[2024-03-27 18:35] LABS: ALB/GLOB Ratio 0.8 RATIO (0.9-2.4); AST(SGOT) 76 U/L (15-37); Alanine Aminotransfer ALT/SGPT 30 U/L (13-56); Albumin, Serum 3.2 g/dL (3.2-5.0); Alkaline Phosphatase 108 U/L (45-117); Anion Gap 6 (5-15); BUN 14 mg/dL (7-18); BUN/Creat Ratio 12.6 RATIO (10-20); Calcium,Total 9.6 mg/dL (8.5-10.1); Chloride 106 mmol/L (98-107); Creatinine, Serum 1.11 mg/dL (0.55-1.02); EST Glomerular Filtration Rate 53 mL/min (>60); Est Glom Filt Rate - Afr Amer 65 mL/min (>60); Glucose 116 mg/dL (74-106); Lipase 30 U/L (13-75); Potassium 3.5 mmol/L (3.5-5.1); Protein, Total 7.2 g/dL (6.4-8.2); Sodium Level 140 mmol/L (136-145)
== END | disposition home or self-care (01) ==
LOC: MFPLAB 16:57
PROVIDERS: PCP Family Medicine; Visit Provider Family Medicine
DX: R10.9 Unspecified abdominal pain (principal)
CPT/HCPCS: 36415; 80053; 83690; 85025

== ENCOUNTER → 2024-03-29 | Outpatient (CLI) | payer BC, SELFPAY ==
--- NOTE | 2024-03-29 08:16 | US_ITS ---
STUDY: ABDOMINAL ULTRASOUND - RIGHT UPPER QUADRANT REASON FOR VISIT: Female, 59 years old. ABDOMEN PAIN ABD PAIN TECHNIQUE: Ultrasound evaluation of the right upper quadrant was performed with real-time and static castano-scale imaging. TECHNICAL QUALITY: Adequate. COMPARISON: None FINDINGS: Liver: The liver has a size in centimeters of 20. There is increased echogenicity consistent with fatty infiltration. The bile ducts are within normal limits. There is hepatic color flow. The direction of portal flow is hepatopetal. There is no demonstrated mass lesion. Gallbladder: Normal distended gallbladder. The gallbladder wall measures 9.4 mm. There is a negative sonographic Pedraza''s sign. There is pericholecystic fluid. There are multiple echogenic structures within the gallbladder, consistent with multiple gallstones. Common Bile Duct (C.B.D.): The common bile duct measures ( in mm): 3.7. Pancreas: Normal size of the head, body of the pancreas. There is increased echogenicity of the pancreas. There is no demonstrated pancreatic mass or cyst. Right Kidney: Normal size of the right kidney. The right kidney measures 10.4 cm. . Normal renal cortex. 13 mm simple cyst of the right kidney. There is no right hydronephrosis. Aorta: 20 mm in maximal aortic diameter. Abdominal ascites. Spleen: Normal size of the spleen. The spleen measures 11 cm. Left Kidney: Normal size of the left kidney. The left kidney measures 10.9 cm. . There is a normal cortex of the left kidney. 12 mm stable cyst of the left kidney. There is no left hydronephrosis. I.V.C.: The IVC is patent. Pleural effusion. US/Abdomen Complete IMPRESSION: Moderate abdominal ascites. Cholelithiasis with a thickened gallbladder wall. Pericholecystic fluid. No Pedraza sign. Echogenic pancreas. Hepatomegaly. Hepatic steatosis. Note: Renal size measurements and size measurements of other organs etc may vary depending on modality and blanchard grinder operator dependent variations in measurements. (i.e. Measuring a kidney on an US does not correlate with an exact same measurement on a CT.) Electronically Signed: Dinesh Schafer MD at 17:00 [facility] ,
== END | disposition home or self-care (01) ==
LOC: US 08:14
PROVIDERS: PCP Family Medicine; Referring Provider Family Medicine; Visit Provider Family Medicine
DX: R10.9 Unspecified abdominal pain (principal)
CPT/HCPCS: 76700

== ENCOUNTER → 2024-04-08 | Outpatient (CLI) | payer BC, SELFPAY ==
--- NOTE | 2024-04-08 09:24 | CT_ITS ---
ACR Level 3 findings have been noted. An addendum which confirms receipt of the report will follow. HISTORY: abdominal ascites. TECHNIQUE: Helically acquired images were obtained of the abdomen and pelvis after the intravenous administration of 100 mL Isovue-370. Gastrografin also administered orally. A radiation dose optimization technique was used for this scan. 476 images. COMPARISON: US 02/27/2024. FINDINGS: LOWER CHEST: 3 mm right middle and lower lobe nodules. Mild dependent lower lobe atelectasis with mild-moderate bilateral pleural effusions. BOWEL: Bowel nondilated. Appendix not visualized. Colonic diverticulosis without focal inflammatory change observed. PERITONEUM: Mild ascites with multiple omental and peritoneal nodules and masses 4 quadrants of the abdomen measuring up to 8 x 12 cm in the right lower quadrant and 3.6 x 8 cm and the left upper quadrant. LIVER: Fatty infiltration with a 3.5 cm subtle hypoenhancing mass in the right lobe adjacent to the gallbladder fossa. GALLBLADDER/BILIARY TREE: 5 cm gallstone. SPLEEN: Homogeneous and nonenlarged. 3.8 cm necrotic appearing mass at the splenic hilum. PANCREAS/ADRENAL GLANDS: Unremarkable. KIDNEYS: Right renal malrotation. Probable left renal sinus cysts. VESSELS: No abdominal aortic aneurysm. Mild atherosclerosis. PELVIC ORGANS: Absent uterus. 3.6 x 4.1 cm right adnexal mass. BONES: Mild degenerative change. CT/Abdomen/Pelvis WITH Contrast IMPRESSION: Multiple heterogeneous omental and peritoneal masses and nodules, concerning for malignancy with metastases and carcinomatosis. 3.5 cm mass in the right hepatic lobe, also concerning for malignancy or metastatic disease. Mild ascites and pleural effusions. 3 mm pulmonary nodules in the right lung base, possible metastases. Cholelithiasis. Colonic diverticulosis. Electronically Signed: Anisha Castro MD at 13:15 EST ,
[2024-04-08 09:40] LABS: Hemoglobin 13.1 g/dL (12.0-15.0); Mean Corpuscular Hgb 27.7 pg (27.0-32.0); Mean Corpuscular Volume 86.7 fL (81-99); Mean Platelet Vol. 10.7 fl (6.2-12.0); Platelet Count 409 K/mm3 (150-450); RBC Distribution Width CV 13.5 % (11.6-14.6); RBC Distribution Width SD 42.4 fl (35.1-43.9); Red Blood Count 4.73 M/mm3 (4.2-5.4); White Blood Count 13.8 K/mm3 (4.4-11.0)
[2024-04-08 09:45] LABS: Vitamin D,25 Hydroxy 45.7 ng/mL
[2024-04-08 10:16] LABS: ALB/GLOB Ratio 0.8 RATIO (0.9-2.4); AST(SGOT) 63 U/L (15-37); Alanine Aminotransfer ALT/SGPT 24 U/L (13-56); Albumin, Serum 3.4 g/dL (3.2-5.0); Alkaline Phosphatase 111 U/L (45-117); Anion Gap 10 (5-15); BUN 13 mg/dL (7-18); BUN/Creat Ratio 10.1 RATIO (10-20); Calcium,Total 9.4 mg/dL (8.5-10.1); Chloride 106 mmol/L (98-107); Cholesterol 182 mg/dL (200); Creatinine, Serum 1.29 mg/dL (0.55-1.02); EST Glomerular Filtration Rate 45 mL/min (>60); Est Glom Filt Rate - Afr Amer 54 mL/min (>60); Globulin 4.1 g/dL (2.2-4.2); Glucose 148 mg/dL (74-106); High Density Lipoprotein 48 mg/dL; Potassium 3.1 mmol/L (3.5-5.1); Protein, Total 7.5 g/dL (6.4-8.2); Sodium Level 140 mmol/L (136-145); Triglycerides 191 mg/dL; Very Low Density Lipoprotein 38 mg/dL (5-40)
[2024-04-08 10:17] LABS: Protein, Urine (Random) 147.1 mg/dL (<11.9); Protein:Creat Ratio 466 mg/g CRE (0-200)
== END | disposition home or self-care (01) ==
LOC: CT 09:24
PROVIDERS: PCP Family Medicine; Referring Provider Surgery; Visit Provider Surgery
DX: R18.8 Other ascites (principal); E11.9 Type 2 diabetes mellitus without complications; R63.4 Abnormal weight loss; R10.9 Unspecified abdominal pain; E55.9 Vitamin D deficiency, unspecified
CPT/HCPCS: 36415; 74177; 80053; 80061; 82306; 82570; 84156; 84443; 85027; 86304; Q9967

== ENCOUNTER 2024-04-12 08:36 | Outpatient (CLI) | payer BC, SELFPAY ==
[2024-04-12] VITALS (12 sets, daily range): BP systolic 117–166; BP diastolic 56–87; PULSE 87–94; RESP 11–22; TEMP 36.2; O2SAT 90–96; BMI 37.6
--- NOTE | 2024-04-12 | ASPIGT_PTH ---
PATIENT: MARGRET SOLER LOC: CT U#:[id number] AGE/SX: 59/F ROOM: RE04/12/[address]: Dr. Leonie Francis MD : 1965 BED: DIS: 04/12/2024 SPEC #: [id number] RECD: 04/12/24 10:31 STATUS: CHARU REQ #: [id number] DIANA: 04/12/24 00:[address]: Leonie Francis DEPT: SURGICAL PATHOLOGY RECD BY: Fanta Nieves ENTERED: 04/12/24 10:32 SP TYPE: ASP RAD OTHR DR: MD Dr. Joel Noe DO Tissues: Omentum, NOS Procedures: FNA Specimen Adequacy Special Stain Group II Surgery Specimen Level IV Imprint (control) HEADER OPERATION: CT guided abdominal biopsy PRE-OP DIAGNOSIS: Omental mass TISSUE SUBMITTED: 18 gauge x 5 cores MICROSCOPIC DIAGNOSIS Omental mass, CT guided core biopsy: Metastatic non-small cell carcinoma. See comment. AM 04/15/2024 COMMENT Immunohistochemistry ([id number]) supports the above diagnosis but does not elucidate a primary site of origin. Possible primaries include upper GI tract and ovary. Consistent with epithelial neoplasm. Clinical correlation is suggested. Case is discussed with Dr. Francis 04/17/24. MICROSCOPIC DESCRIPTION Slides are reviewed. GROSS DESCRIPTION Received is one container labeled with the patient's name and not further designated. The specimen consists of multiple irregular and elongated fragments of murry tissue that in aggregate measure 1.0 x 0.6 x <0.1 cm. The specimen is submitted in its entirety in one cassette. AMJefferson 04/12/2024 TC:0 CPT:67098 ADDENDUM ADDENDUM ADDENDUM ADDENDUM ADDENDUM ADDENDUM ADDENDUM ADDENDUM ADDENDUM ADDENDUM 05/27/2024 10:22 ADDENDUM 05/27/2024 10:22 ADDENDUM 05/27/2024 10:22 ADDENDUM 05/27/2024 10:22 ADDENDUM 05/27/2024 10:22 This addendum is added to incorporate an outside pathology consultation report. The case was examined at [facility] (#[id number]) and the following diagnosis was rendered. Omentum mass, biopsy: Metastatic poorly differentiated carcinoma. Please see complete above mentioned consultation report in EMR
--- NOTE | 2024-04-12 | IMM_PTH ---
PATIENT: MARGRET SOLER LOC: CT U#:[id number] AGE/SX: 59/F ROOM: RE04/12/[address]: Dr. Leonie Francis MD : 1965 BED: DIS: 04/12/2024 SPEC #: [id number] RECD: 04/15/24 10:51 STATUS: CHARU REQ #: [id number] DIANA: 04/12/24 00:[address]: Leonie Francis DEPT: IMMUNOHISTOCHEMISTRY RECD BY: Saeed Harding ENTERED: 04/15/24 10:53 SP TYPE: IMMUNO OTHR DR: Dr. Gabriel Elizabeth MD Tissues: Omentum, NOS Procedures: RCC (add) Thyroglobulin (add) NAPSIN A (add) CA-125 (add) CD34 (add) CD56 (add) CEA (add) CK19 (add) CK20 (add) CK5-6 (add) CK7 (add) E-CAD (add) EFREN (add) HEP PAR (add) HER2 REHANA (add) KI-67 (add) MAMM (add) MPO (add) P53 (add) WI (add) TTF1 (add) Vimentin (add) Pankeratin (add) MELAN-A (add) GATA3 (add) P40 (add) CDX2 (add) PAX8 (add) Uroplakin III (add) MOC-31 (add) ER (initial) NSE (add) S-100 (add) PHYSICIAN & INSTITUTION [facility] [address] [place] [id number] SPECIMEN INFORMATION: Tissue Source: Omental mass Clinical Info: Omental mass Specimen Number: [id number] CPT code: 75696,[id number] METHODOLOGY: Deparaffinized sections of prefer/formalin-fixed tissue or PAP/DQ stained slides are incubated with monoclonal/polyclonal antibodies/oligonucleotide probes. Localization is made via biotin free immunoperoxidase method. Appropriate controls are performed and reacted as expected. Results on target cell population are indicated in the following table: RESULTS: ANTIBODY / CLONE RESULT ER (6F11) negative WI (1E2) positive, very dim Her-2neu (CB11) negative E-Cad (ECH-6) positive Mammaglobin (31A5) negative GATA3 (L50-823) negative AE1-3 (AE1/AE3/PCK26) positive Vimentin (V9) negative S-100 (4C4.9) negative CK19 (A53-B/A2.26) positive CD56 (123C3.D5) negative TTF-1 (8G7G3/1) negative Napsin A (Rabbit Polyclonal) negative HepPar (OCh1E5) negative RCC (PN-15) negative Thyro (2H11+6E1) negative Uroplakin III (SP73) negative CK5-6 (D5 & 1684) negative P40 (BC28) negative EFREN (E29) positive, focal CEA (11-7/TF-3HB-1) positive, rare CA125 (OC125) negative P53 (DO-7) positive, indeterminate pattern Ki-67 (30-9) positive, 85% CK20 (KS20.8) negative CDX2 (RFR7221Z) negative MOC-31 (4561) positive PAX8 (MRQ50) negative CK7 (OV-TL12/30) positive MPO (polyclonal) negative CD34 (QBEnd-10) negative Melan A (A103) negative NSE Neuron Specific Enolase negative These tests were developed and their performance characteristics determined by [facility]. They may not have been cleared or approved by the U.S. Food and Drug Administration. The FDA has determined that such clearance or approval is not necessary. The above immunohistochemical/dualISH markers are ordered and reviewed by the Pathologist. INTERPRETATION: Omental mass, CT guided core biopsy: Metastatic non-small cell carcinoma. See comment. COMMENT: The IHC profile is non-contributory. Possible primaries include GI tract and ovary. Clinical correlation is necessary. 04/18/2024
[2024-04-12 09:02] LABS: Prothrombin Time (Protime)PT. 13.4 SECONDS (11.7-14.9)
[2024-04-12] MEDS: Midazolam 2 MG/2 ML Syringe IV (09:55)
[2024-04-12] MEDS: 0.9% Saline Lock 10 ML Syringe IV ×2 (09:57→10:02)
[2024-04-12] MEDS: fentaNYL 100 MCG/2 ML Ampul IV (09:59)
[2024-04-12] MEDS: Lidocaine 2% (20 ml mdv) 20 ML Vial INFILT (10:09)
--- NOTE | 2024-04-12 10:44 | OP.PCM_ITS ---
Problems Associated Problem List Diagnoses (1) Omental mass: Operative Report (Standard) Operative Information Surgery/Procedure Performed: Omental Mass Biopsy Surgeon: Sapna Morris Date of Procedure: 04/12/24 Procedure Start Time: 09:58 Procedure Stop Time: 10:17 Pre-Operative Diagnosis: Omental Masses Post-Operative Diagnosis: Omental Masses Select all DRAINS/GRAFTS/IMPLANTS that apply: None Type of Anesthesia: IV Sedation and Local Estimated Blood Loss: 0 Specimen collected: Yes Description of specimen(s) removed: 6 cores Description of surgery: PROCEDURE: CT DIRECTED CORE omental mass biopsy ORDERING PROVIDER: Dr. Francis INDICATION: Female, 59 years old. Omental masses biopsy. PROVIDER: KEIKO Moore CONSENT: Written informed consent was obtained having explained the risks, benefits and alternatives in detail with the patient who accepted the risks and agreed to proceed. Laboratory review and clinical assessment was performed. PRE-PROCEDURE SEDATION ASSESSMENT: Current history and physical dictated by referring provider and reviewed. No clinical changes since date of exam. Patient has a Mallampati Score of Class 3 and ASA Class of 3. PROCEDURAL SEDATION PROTOCOL: The Drugs used were: 2 mg Versed, IV, and 50 mcg Fentanyl, IV. The sedation time starting at 0958 and terminated at 1017. The procedural sedation protocol was independently monitored by the department nurse. RADIATION DOSAGE (If Supplied By Facility): CTDIvol = 17.86 mGy, DLP = 1363.52 mGycm Individualized dose optimization techniques were used for this CT. TECHNIQUE The patient was placed in a supine position. Using CT image guidance with image documentation, left abdominal omental mass was identified. The skin surface was prepped with chlorhexidine and draped in a sterile fashion. 2% lidocaine was used for local anesthesia. Using an anterior approach, puncture of the mass was uneventful with an 18-gauge core needle system. 6, 18-gauge core samples were obtained, and submitted in formalin to the pathologist for further assessment. Lab was also present to prepare slides of the specimen. The needle was removed. An occlusive sterile dressing was applied. Patient tolerated the procedure well, and returned to the holding bay for nursing monitoring. IMPRESSION: CT directed core needle omental mass biopsy , using CT image guidance with image documentation as described. Procedural Sedation protocol utilized with independent monitoring. 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
== END 2024-04-12 23:59 | disposition home or self-care (01) ==
LOC: CT 08:36
PROVIDERS: Nurse Practitioner Acute Care; PCP Family Medicine; Referring Provider Surgery; Visit Provider Surgery
DX: Z01.818 Encounter for other preprocedural examination (principal); K66.8 Other specified disorders of peritoneum; R10.13 Epigastric pain; R18.8 Other ascites; K80.20 Calculus of gallbladder without cholecystitis without obstruction
CPT/HCPCS: 49180; 36415; 77012; 81002; 85610; 85730; 88172; 88305; 88313; 88341; 88342; 99156; A4216

== ENCOUNTER 2024-06-14 10:39 | Emergency (ER) | payer BC, SELFPAY ==
[2024-06-14] VITALS (8 sets, daily range): BP systolic 109–145; BP diastolic 68–80; PULSE 105–121; RESP 18–24; TEMP 36.4–37.2; O2SAT 97–99; BMI 35.4
--- NOTE | 2024-06-14 11:14 | CT_ITS ---
PROCEDURE: CTA CHEST W/WO CONTRAST REASON FOR EXAM: History of pulmonary emboli. Patient has history of ovarian cancer. Decreased hemoglobin. TECHNIQUE: CTA imaging of the chest with intravenous contrast. 3D reconstructions. CONTRAST: IV contrast was given. COMPARISON: None. FINDINGS: There is elevation of the right hemidiaphragm. Hardware: A right-sided port a catheter is seen with the tip in the superior vena cava. Lymph nodes: Small mediastinal lymph nodes. Heart: Normal heart size. No pericardial effusion. RV/LV Diameter Ratio: N/A Thoracic Aorta: No thoracic aortic aneurysm or dissection. Pulmonary Vessels: No evidence of acute pulmonary emboli through the major subsegmental branches. Most Proximal Level of Embolus (if embolus present): N/A Lungs and Airways: The lungs are normally expanded and clear. Pleura: Moderate-sized left pleural effusion with the dependent basilar atelectasis in the left lower lobe. Tiny right pleural effusion with right basilar atelectasis and/or infiltrate. Focal infiltrate in the right middle lobe. Upper Abdomen: Fatty infiltration of the liver. Bones: Degenerative changes of the thoracic spine. CT/CTA Chest W/WO Contrast IMPRESSION: No evidence of pulmonary embolism. Moderate-sized left pleural effusion with dependent basilar atelectasis in the left lower lobe. Tiny right pleural effusion with right basilar atelectasis and/or infiltrate. Focal infiltrate in the right middle lobe. Fatty infiltration of the liver. One or more dose reduction techniques were used (e.g., Automated exposure contr ol, adjustment of the mA and/or kV according to patient size, use of iterative reconstruction technique). Reading Location: [place] [id number]
--- NOTE | 2024-06-14 11:15 | EKG12_ITS ---
Test Reason : Blood Pressure : */* mmHG Vent. Rate : 106 BPM Atrial Rate : 106 BPM P-R Int : 150 ms QRS Dur : 68 ms QT Int : 304 ms P-R-T Axes : 30 9 92 degrees QTcB Int : 403 ms Poor data quality, interpretation may be adversely affected Sinus tachycardia with Fusion complexes Left ventricular hypertrophy with repolarization abnormality ( R in aVL ) Abnormal ECG Confirmed by OSMAN HAGEN MD ([id number]), food editor DIMITRI CADE ([id number]) on 06/17/2024 7:03:05 AM Referred By: Confirmed By: OSMAN HAGEN MD
--- NOTE | 2024-06-14 11:17 | EX.ED.DYSGE1 ---
HPI History of Present Illness Chief Complaint: Abn Labs Informant: patient, spouse/S.O. and PCP (Dr. Foote) Narrative Narrative: Patient is a 59-year-old female with recent diagnosis of carcinomatosis presenting to ER at request of her oncologist (Dr. Foote) for blood transfusion. Patient had outpatient hemoglobin today of 6.9. She was 8.9 on 06/03. He did fax over her lab reports today. He was not able to arrange for outpatient transfusion so he wanted her to come to the emergency room. Patient notes that overall she has been doing okay. She is finally got her nausea under control. She does note that over the past few days she has had some shortness of breath and new left-sided chest pain. She has some chronic upper abdominal pain which is unchanged. She did take her pain medicine prior to arrival today. She has been with constipation and denies any black or blood in her stool. Per her oncologist she did have an EGD on May 17 which did not show any signs of bleeding. Her oncologist suspects that her cancer and 1 dose of carboplatin that she received 3 weeks ago at [facility] Is what is contributing to her anemia today. 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 No other acute complaints at this time. Patient is on any blood thinners. Chart review does show she has a history of pulmonary emboli. Patient was not to be tachycardic in the ER. States her normal heart rate is in the 90s. [facility] Medical History Ovarian mass Omental mass Abdominal ascites BCC (basal cell carcinoma of skin) Sepsis Pulmonary embolism Kidney stones Hemorrhoids Weight loss N&V (nausea and vomiting) Cholelithiasis Abdominal pain HTN (hypertension) Diabetes Home Medications ?Medication ?Instructions ?Recorded ?Last Taken ?Type amlodipine 5 mg tablet 5 mg PO QDAY 04/08/24 Unknown History losartan 100 mg tablet 100 mg PO QDAY 04/08/24 Unknown History metformin 500 mg tablet,extended 500 mg PO QDAY 04/08/24 Unknown History release 24 hr omeprazole 40 mg capsule,delayed 40 mg PO QDAY #30 caps 04/08/24 Unknown Rx release alprazolam 0.25 mg tablet 0.25 mg PO TID PRN PRN sleep 06/14/24 Unknown History doxycycline hyclate 100 mg tablet 100 mg PO BID #14 tabs 06/14/24 Unknown Rx lidocaine-prilocaine 2.5 %-2.5 % 1 applic topical PRN PRN 06/14/24 Unknown History topical cream port/catheter care metoclopramide HCl 5 mg tablet 5 mg 4XD 06/14/24 Unknown History prochlorperazine maleate 10 mg 10 mg PO Q6H PRN PRN nausea and 06/14/24 Unknown History tablet vomiting Allergy/AdvReac Type Severity Reaction Status Date / Time hydrochlorothiazide (From Allergy Mild Hives Verified 06/14/24 10:41 Hyzaar) lisinopril Allergy Mild Hives Verified 06/14/24 10:41 losartan (From Hyzaar) Allergy Mild Hives Verified 06/14/24 10:41 metoprolol (From Toprol XL) Allergy Mild Other Verified 06/14/24 10:41 semaglutide (From Ozempic) Allergy Mild Nausea/Vom/ Verified 06/14/24 10:41 Diarrhea triamterene Allergy Mild Hives Verified 06/14/24 10:41 Family History Father Kidney disease Cancer renal,prostate Diabetes Hypertension Sister Diabetes Cancer Faby cell Mother Breast cancer Surgical History S/P breast biopsy History of lithotripsy S/P ureteral stent placement S/P tonsillectomy and adenoidectomy History of hymenectomy S/P hysterectomy Social History Smoking Status: Unknown if ever smoked alcohol intake: never ROS ROS ED Constitutional Constitutional ED: Denies chills or fever(s) Cardiovascular Cardiovascular: Reports chest pain Respiratory/Chest Respiratory/Chest: Reports dyspnea; Denies cough Gastrointestinal Gastrointestinal: Reports abdominal pain and constipation; Denies vomiting Musculoskeletal Musculoskeletal: Denies arthralgias or myalgias Integumentary Denies rash Neurologic Neurologic: Reports weakness Hematologic/Lymphatic Hematologic/Lymphatic: Denies easy bleeding or easy bruising EXAM Physical Exam Const Vital Signs: 06/14/24 10:41 06/14/24 13:22 06/14/24 14:10 Temperature 97.9 F 98.9 F 98.4 F Temperature Source Oral Oral Oral Pulse Rate 112 H 105 H 112 H Respiratory Rate 18 18 20 H Blood Pressure 134/70 H 137/68 H 145/71 H Blood Pressure Mean 91 91 95 Blood Pressure Source Monitor Blood Pressure Position Semi-Fowlers Blood Pressure Location Right Arm Pulse Ox 98 99 98 Oxygen Delivery Method Room Air Nasal Cannula Nasal Cannula Oxygen Flow Rate (L/min) 3 3 06/14/24 14:25 06/14/24 15:00 06/14/24 15:25 Temperature 97.5 F L 98.4 F Temperature Source Oral Oral Pulse Rate 110 H 106 H 111 H Respiratory Rate 23 H 21 H 24 H Blood Pressure 109/80 135/68 H 139/68 H Blood Pressure Mean 89 85 91 Blood Pressure Source Monitor Monitor Blood Pressure Position Semi-Fowlers Semi-Fowlers Blood Pressure Location Right Arm Right Arm Pulse Ox 98 99 97 Oxygen Delivery Method Nasal Cannula Nasal Cannula Oxygen Flow Rate (L/min) 3 3 06/14/24 16:00 06/14/24 16:14 Temperature Temperature Source Pulse Rate 109 H 121 H Respiratory Rate 24 H Blood Pressure 144/73 H 144/73 H Blood Pressure Mean 92 96 Blood Pressure Source Blood Pressure Position Blood Pressure Location Pulse Ox 97 97 Oxygen Delivery Method Oxygen Flow Rate (L/min) Positive well nourished and well developed General Appearance ED: well developed and pallor Neck supple and no JVD Chest Wall inspection of chest normal and palpation of chest normal Resp Resp Narrative: Mildly tachypneic. Clear breath sounds. Patient does take mildly shallow breaths. Cardio regular rhythm and no murmurs Rate: tachycardic GI GI Narrative: Protuberant abdomen. Tenderness in the right upper quadrant which patient states is chronic. No fluid wave appreciated. Bowel sounds present. Extremity normal to inspection General Extremety ED: Negative for edema General Extremity: Negative for edema Neuro oriented x3 Sensorium / Orientation: alert Motor Exam: general weakness Psych mental status grossly normal Skin no rashes or lesions noted General Skin Exam: pallor MDM MDM MDM Narrative Medical decision making narrative: Patient is evaluated for anemia. She is mildly symptomatic and tachycardic on arrival. I am not convinced that her anemia is the cause of her tachycardia and shortness of breath and concerned that she could have secondary process including pulmonary blood, pleural effusion or infiltrate. Will obtain CTA of the chest, basic labs, EKG and also type and cross the patient for 1 unit. Patient is have a leukocytosis of 15.0. She has a left shift. Hemoglobin now 6.4. Platelets are normal. Is transfused 1 unit of packed red blood cells. Remainder of workup largely negative or at baseline. She is a mild elevation of alkaline phosphatase but this is consistent with her history of cancer. CTA is ordered to rule out PE, recurrent pleural effusion or infiltrate this causing her right-sided chest pain. CTA does show moderate left-sided pleural effusion and right tiny pleural effusion with right basilar out of lack to cyst or infiltrate. There is also focal infiltrate of the right middle lobe. High sensitive troponin is normal and low suspicion for ACS as the cause of her pain. Given that she does have an infiltrate I did speak with her oncologist, Dr. Foote. Reviewed her results with him. He is comfortable with me starting the patient on doxycycline. Will ambulate her and if she does well on her baseline oxygen will be discharged home. He is agreeable with this. Patient preferred to go home as well. While in the room patient's tachycardia has improved to the low 100s now. Patient given first dose of doxycycline in the emergency room. Is given a dose of Reglan for her nausea and oral potassium replacement in the emergency room. Has ambulated and tolerates this. Will be discharged home with a prescription for doxycycline. Given return precautions. She and her are agreeable plan of care. Discharged home in improved and stable condition. Will follow-up on Monday with oncology as scheduled. Lab Data Attestation: I reviewed the patient's lab results. Labs: Laboratory Results - last 24 hr 06/14/24 11:20 WBC 15.0 H RBC 2.52 L Hgb 6.4 L Hct 21.2 L MCV 84.1 MCH 25.4 L MCHC 30.2 L RDW Std Deviation 52.2 H RDW Coeff of Maynor 17.4 H Plt Count 209 MPV 10.6 Immature Gran % (Auto) 1.900 H Neut % (Auto) 90.7 H Lymph % (Auto) 3.7 L [place] % (Auto) 3.3 Eos % (Auto) 0.1 Baso % (Auto) 0.3 Absolute Neuts (auto) 13.6 H Absolute Lymphs (auto) 0.55 L Nucleated RBC % 0 PT 15.3 H INR 1.2 Sodium 138 Potassium 3.1 L Chloride 100 Carbon Dioxide 26.0 Anion Gap 12 BUN 15 Creatinine 0.58 Estim Creat Clear Calc 106.12 Est GFR (MDRD) Af Amer 135 Est GFR (MDRD) Non-Af 112 BUN/Creatinine Ratio 25.7 H Glucose 112 H Calcium 9.7 Magnesium 2.0 Total Bilirubin 0.30 AST 38 H ALT 10 L Alkaline Phosphatase 144 H Troponin I High Sens 9 Total Protein 6.6 Albumin 1.3 L Globulin 5.3 H Albumin/Globulin Ratio 0.2 L Lipase 15 Blood Type A POSITIVE Antibody Screen NEGATIVE Crossmatch See Detail Radiography Diagnostic Testing: Clinical Impression(s) from Imaging Studies Chest CTA 06/14/24 11:14 IMPRESSION: No evidence of pulmonary embolism. Moderate-sized left pleural effusion with dependent basilar atelectasis in the left lower lobe. Tiny right pleural effusion with right basilar atelectasis and/or infiltrate. Focal infiltrate in the right middle lobe. Fatty infiltration of the liver. One or more dose reduction techniques were used (e.g., Automated exposure control, adjustment of the mA and/or kV according to patient size, use of iterative reconstruction technique). Reading Location: [place] [address] Rhythm Strip Rhythm Strip: Sinus Tach Rate: 106 Ectopy: None EKG Initial EKG: Attestation: I personally reviewed and interpreted this EKG as follows: Interpretation: Sinus Tachycardia Comments: Sinus tachycardia at a rate of 106 bpm Normal axis LVH present Normal ST segments Compared to prior EKG, no significant international exchange coordinator Discussion w/another healthcare provider: Last Trimmer (oncology ) Discharge Plan Triage Chief Complaint: Abn Labs ED Provider: Camren Patel Dx/Rx/DC Orders Clinical Impression: Symptomatic anemia, Right middle lobe pneumonia, Hypokalemia Instructions: ED Anemia, Type Not Specified (Adult), ED Hypokalemia, ED Pneumonia (Adult) Prescriptions: New doxycycline hyclate 100 mg tablet 100 mg PO BID Qty: 14 0RF No Action metformin 500 mg tablet extended release 24 hr 500 mg PO QDAY losartan 100 mg tablet 100 mg PO QDAY amlodipine 5 mg tablet 5 mg PO QDAY omeprazole 40 mg capsule,delayed release(DR/EC) 40 mg PO QDAY Qty: 30 5RF Rx Instructions: swallow whole; do not crush, chew, dissolve, cut, break alprazolam 0.25 mg tablet 0.25 mg PO TID PRN PRN (Reason: sleep) lidocaine-prilocaine 2.5-2.5 % cream 1 applic topical PRN PRN (Reason: port/catheter care) metoclopramide HCl 5 mg tablet 5 mg 4XD prochlorperazine maleate 10 mg tablet 10 mg PO Q6H PRN PRN (Reason: nausea and vomiting) Primary Care Provider: Gabriel Elizabeth Referrals: Gabriel Elizabeth MD [Primary Care Provider] - Activity Restrictions/Additional Instructions: Received 1 unit of packed red blood cells today. Please follow-up outpatient with Dr. Foote. Your potassium was mildly low today and you did receive some potassium supplementation. Your CT did not show any blood clot of the lungs but did show pneumonia in the right middle lung. You have been started on doxycycline for this. If you feel your symptoms are worsening, you are needing more oxygen or cannot catch her breath please return to the emergency room. Print Language: Omani Disposition Disposition: Home, Self Care
[2024-06-14 11:34] LABS: Absolute Lymphocyte Count 0.55 X10^3/uL (0.83-4.51); Absolute Neutrophil Count 13.6 X10^3/uL (2.0-7.7); Basophil# 0.04 X10^3/uL; Basophil% 0.3 % (0-1); Eosinophil# 0.01 X10^3/uL; Eosinophils% 0.1 % (0-5); Hematocrit 21.2 % (37-47); Hemoglobin 6.4 g/dL (12.0-15.0); Lymphocyte # 0.55 X10^3/ul (0.83-4.51); Lymphocyte % 3.7 % (19-41); Mean Corp Hgb Conc 30.2 g/dL (32-36); Mean Corpuscular Hgb 25.4 pg (27.0-32.0); Mean Corpuscular Volume 84.1 fL (81-99); Mean Platelet Vol. 10.6 fl (6.2-12.0); Monocyte% 3.3 % (0-10); NRBC Flagged by Analyzer 0 % (0-5); Neutrophil # 13.58 X10^3/uL (2.7-7.7); Neutrophil % 90.7 % (47-70); POSITIVE DIFFERENTIAL YES; Platelet Count 209 K/mm3 (150-450); RBC Distribution Width CV 17.4 % (11.6-14.6); RBC Distribution Width SD 52.2 fl (35.1-43.9); Red Blood Count 2.52 M/mm3 (4.2-5.4)
[2024-06-14 12:12] LABS: ALB/GLOB Ratio 0.2 RATIO (0.9-2.4); AST(SGOT) 38 U/L (15-37); Alanine Aminotransfer ALT/SGPT 10 U/L (13-56); Albumin, Serum 1.3 g/dL (3.2-5.0); Alkaline Phosphatase 144 U/L (45-117); Anion Gap 12 (5-15); BUN 15 mg/dL (7-18); BUN/Creat Ratio 25.7 RATIO (10-20); Calcium,Total 9.7 mg/dL (8.5-10.1); Chloride 100 mmol/L (98-107); Creatinine, Serum 0.58 mg/dL (0.55-1.02); EST Glomerular Filtration Rate 112 mL/min (>60); Est Glom Filt Rate - Afr Amer 135 mL/min (>60); Estimated Creatinine Clearance 106.12 ml/min; Globulin 5.3 g/dL (2.2-4.2); Glucose 112 mg/dL (74-106); Lipase 15 U/L (13-75); Potassium 3.1 mmol/L (3.5-5.1); Protein, Total 6.6 g/dL (6.4-8.2); Sodium Level 138 mmol/L (136-145); Troponin-I HS 9 pg/mL (3.0-54.0)
[2024-06-14 12:35] LABS: International Normalized Ratio 1.2; Prothrombin Time (Protime)PT. 15.3 SECONDS (11.7-14.9)
--- NOTE | 2024-06-14 15:01 | NURSING ---
NO OLD EKGS
--- NOTE | 2024-06-14 16:21 | CHAPLAIN ---
Type of Pastoral Visit _x__ Initial Visit ___ Follow-up Visit ___ On-call Visit ___ General Patient Visit ___ Spiritual Assessment ___ Family Conference ___ Bereavement ___ Rapid Response ___ Code Blue ___ Other (describe below) Pastoral Care Referral From ___ Patient _x__ Family ___ Nurse ___ Physician ___ Ambulance Operations Supervisor ___ Combatant Diver Officer ___ Other (describe below) Sacrament/Intervention _x__ Active listening ___ Anointing ___ Nondenominational ___ Bereavement ___ Communion _x__ Hannah exploration ___ ___ Life review _x__ Prayer ___ Reconciliation ___ Sacrament of Sick _x__ Supportive presence ___ Wedding ___ Other (describe below) Pastoral Comments patient was sent to ED by her cancer doctor; pt is waiting for test results and a probable blood transfusion; pt has pain and some anxiety about her condition and the ongoing babcock with cancer; pt is scheduled to start treatments on Monday; lots of time given to listen, support, pray, and give presence to both pt and spouse
[2024-06-14] MEDS: Metoclopramide 10 MG/2 ML Vial 5 MG IV (16:25)
[2024-06-14] MEDS: Doxycycline 100 MG CAPSULE PO (16:26)
[2024-06-14] MEDS: HYDROmorphone 1 MG/ML Syringe IV (16:45)
[2024-06-14] MEDS: Potassium Chloride Oral Soln 20 MEQ/15 ML UDC PO (16:45)
[2024-06-14] MEDS: 0.9 % NaCl (Sterile) Posiflush 10 mL IV (16:46)
[2024-06-15 09:38] LABS: BNP,B-Type NATRIURETIC PEPTIDE 72.4 pg/mL (0-100)
== END 2024-06-14 17:00 | disposition home or self-care (01) ==
PROVIDERS: Emergency Provider Emergency Medicine; PCP Family Medicine; Visit Provider Emergency Medicine
DX: D64.9 Anemia, unspecified (principal); E11.9 Type 2 diabetes mellitus without complications; E87.6 Hypokalemia; G89.29 Other chronic pain; I10 Essential (primary) hypertension; R91.8 Other nonspecific abnormal finding of lung field; Z90.710 Acquired absence of both cervix and uterus; J18.9 Pneumonia, unspecified organism; J90 Pleural effusion, not elsewhere classified; K76.0 Fatty (change of) liver, not elsewhere classified; Z86.711 Personal history of pulmonary embolism; Z87.442 Personal history of urinary calculi; R06.00 Dyspnea, unspecified
CPT/HCPCS: 36591; 71275; 80053; 83690; 83735; 83880; 84484; 85025; 85610; 86850; 86900; 86901; 93005; 96374; 96375; 99282; P9016; Q9967; A4216

== ENCOUNTER 2024-06-18 11:35 | Outpatient (CLI) | payer BC, SELFPAY ==
[2024-06-18 11:59] VITALS: BP 141/71; PULSE 92; RESP 18; TEMP 35.7; O2SAT 97
[2024-06-18 12:45] VITALS: BP 135/69; PULSE 87; RESP 16; TEMP 35.6
[2024-06-18 13:45] VITALS: BP 132/70; PULSE 82; RESP 16; TEMP 35.7
== END 2024-06-18 23:59 | disposition home or self-care (01) ==
LOC: MEDOUTP 11:36
PROVIDERS: PCP Family Medicine; Referring Provider Internal Medicine Hematology & Oncology; Visit Provider Internal Medicine Hematology & Oncology
DX: D64.9 Anemia, unspecified (principal); C25.9 Malignant neoplasm of pancreas, unspecified
CPT/HCPCS: 36430; 86850; 86900; 86901; P9016; A4216